=== PATIENT | male | born 1945 | race Caucasian/White ===

== ENCOUNTER → 2021-02-08 | Outpatient (CLI) | payer OTHER ==
[~2021-02-08] MED LIST: ANDRODERM1 EAC1 TD; Adult Low Dose81 MG; CIPR500 PO; FINA5 PO; LEVSOD50 PO; LOSARTAN POTAS100 MG PO; Metronidazole70 GM TOP; Multiple Vitam1 EAC1 PO; Simvastatin20 MG PO
== END ==
LOC: LAB 10:51 → LAB SHORT 10:51
DX: D48.5 Neoplasm of uncertain behavior of skin (principal); D04.39 Carcinoma in situ of skin of other parts of face; L28.0 Lichen simplex chronicus
CPT/HCPCS: 88305

== ENCOUNTER → 2023-05-20 | Outpatient (CLI) | payer OTHER | END | disposition home or self-care (01) | LOC: LAB 12:42 → LAB SHORT 12:42 | DX: C44.91 Basal cell carcinoma of skin, unspecified (principal) | CPT/HCPCS: 88305 ==